=== PATIENT | female | born 1935 | race Caucasian/White ===

== ENCOUNTER 2017-10-27 13:38 | Emergency (ER) | payer MEDICARE, OTHER ==
[2017-10-27 14:49] LABS: ABS Basophils 0.1 10^3/ul (0-0.2); ABS Eosinophils 0.1 10^3/ul (0-0.6); ABS Lymphocytes 0.9 10^3/ul (1.0-4.8); ABS Monocytes 0.9 10^3/ul (0-0.8); ABS Neutrophils 4.3 10^3/ul (1.5-7.7); ABS Nucleated RBC 0 10^3/ul; Eosinophil % 1.6 % (0-6); Hematocrit 41 % (35-47); Hemoglobin 14.1 g/dl (12.0-16.0); Lymphocyte % 14.9 % (25-47); Mean Corpuscular HGB Conc 34 g/dl (31-36); Mean Corpuscular Hemoglobin 33 pg (27-31); Mean Corpuscular Volume 96 fL (80-97); Mean Platelet Volume 7.8 um3 (7.4-10.4); Nucleated Red Blood Cells % 0.1; Platelet Count 173 10^3/ul (150-450); Red Blood Count 4.31 10^6/ul (4.00-5.40); Red Cell Distribution Width 17 % (10.5-15); White Blood Count 6.3 10^3/ul (3.5-10.8)
--- NOTE | 2017-10-27 15:11 | RAD ---
INDICATION: Weakness COMPARISON: Renal bone survey chest x-ray March 30, 2017 TECHNIQUE: An AP portable view obtained at 1500 hours is submitted. FINDINGS: Bones/Soft Tissues: There are no acute bony findings. There is left-sided cardiac pacemaker, unchanged Cardiomediastinal: The cardiomediastinal silhouette is normal. Lungs: There are no infiltrates. Pleura: There are no pleural effusions. Other: None IMPRESSION: CARDIAC PACEMAKER. NO ACTIVE DISEASE.
[2017-10-27 15:54] LABS: Urine Appearance Cloudy; Urine Blood 1+ (Negative); Urine Color Yellow; Urine Ketones Negative (Negative); Urine Protein Negative (Negative); Urine Specific Gravity 1.009 (1.010-1.030); Urine Urobilinogen Negative (Negative)
[2017-10-27] MEDS ORDERED: Ciprofloxacin TAB* 500 MG PO ONE (16:57)
[2017-10-27 17:06] VITALS: BP 147/78
--- NOTE | 2017-10-27 21:17 | ED ---
Susie Glass Prashati, scribed for Alfred Borges MD on 10/27/17 at 1504 . Palpitations / Dysrhythmia - HPI Summary HPI Summary: Pt is an 82 y/o F presents to ED c/o general malaise. She has been not feeling well with generalized weakness since this morning. This morning she seemed more out of sort than usual, and her son's who is a nurse took her heart rate and believed it to be irregular and fast. Pt says she didnt notice any palpitations. She does note that she would have felt dizzy if she stood up, but she didnt stand up. She denies chest pain, dyspnea, and nausea. Yesterday she had a normal diet and drink and felt well. Today she had diarrhea once that she described as loose. No problems urinating. PSHx of a pacemaker insertion in 2010 and it was last checked with [facility] about 1 month ago. 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, Other: - nurse's report Severity Currently: None Character: Fast, Irregular Aggravating: Nothing Alleviating: Nothing - Allergy/Home Medications Allergies/Adverse Reactions: Allergies Allergy/AdvReac Type Severity Reaction Status Date / Time No Known Allergies Allergy Verified 10/27/17 13:43 Home Medications: Home Medications Cyanocobalamin TAB* [Vitamin B12 TAB*] 500 mcg PO DAILY 10/27/17 [History Confirmed 10/27/17] Dexamethasone TAB* [Decadron TAB*] 40 mg PO Q7D 10/27/17 [History Confirmed 10/09] Docusate CAP* [Colace Cap*] 100 mg PO DAILY 10/27/17 [History Confirmed 10/27/17 ] Dronabinol CAP* [Marinol CAP*] 2.5 mg PO BEDTIME 10/27/17 [History Confirmed 10/09] Ibuprofen TAB* [Advil TAB*] 200 mg PO TID PRN 10/27/17 [History Confirmed ] Lenalidomide (NF) [Revlimid (NF)] 25 mg PO Q14D 10/27/17 [History Confirmed 10/09] Rosuvastatin (NF) [Crestor] 20 mg PO DAILY 10/27/17 [History Confirmed 10/27/17] fentaNYL PATCH 25 MCG/HR* [Duragesic PATCH 25 Mcg/Hr*] 25 mcg TRANSDERM Q72H PRN 10/27/17 [History Confirmed 10/27/17] oxyCODONE TAB* [Roxycodone TAB 5 mg*] 5 mg PO Q4H PRN 10/27/17 [History Confirmed 10/27/17] PMH/Surg Hx/FS Hx/Imm Hx Cardiovascular History: Reports: Hx Pacemaker/ICD - 2011 Musculoskeletal History: Reports: Hx Arthritis, Hx Back Problems Sensory History: Reports: Hx Contacts or Glasses - GLASSES Denies: Hx Hearing Aid Opthamlomology History: Reports: Hx Contacts or Glasses - GLASSES - Surgical History Surgery Procedure, Year, and Place: 2008 LUMBAR SURGERY [facility]. 2010 PACEMAKER INSERTION [facility] Hx Anesthesia Reactions: No Infectious Disease History: No Infectious Disease History: Denies: Traveled Outside the [place] in Last 30 Days - Family History Known Family History: Positive: Other - [id number] - Social History Alcohol Use: None Substance Use Type: Reports: None Smoking Status (MU): Never Smoked Tobacco Review of Systems Positive: Other - general malaise, generalized weakness Positive: Palpitations - Son's said fast and irregular - pt denies. Negative: Chest Pain Negative: Shortness Of Breath Positive: Diarrhea. Negative: Nausea Positive: no symptoms reported All Other Systems Reviewed And Are Negative: Yes Physical Exam - Summary Physical Exam Summary: Appearance: The patient is well-nourished in no acute distress and in no acute pain. Skin: The skin is warm and dry and skin color reflects adequate perfusion. HEENT: The head is normocephalic and atraumatic. The pupils are equal and reactive. The conjunctivae are clear and without drainage. Nares are patent and without drainage. Mouth reveals moist mucous membranes and the throat is without erythema and exudate. The external ears are intact. The ear canals are patent and without drainage. The tympanic membranes are intact. Neck: The neck is supple with full range of motion and non-tender. There are no carotid bruits. There is no neck vein distension. Respiratory: Chest is non-tender. Lungs are clear to auscultation and breath sounds are symmetrical and equal. Cardiovascular: Heart is regular rate and rhythm. There is no murmur or rub auscultated. There is no peripheral edema and pulses are symmetrical and equal. Abdomen: The abdomen is soft and non-tender. There are normal bowel sounds heard in all four quadrants and there is no organomegaly palpated. Musculoskeletal: There is no back tenderness noted. Extremities are non-tender with full range of motion. There is good capillary refill. There is no peripheral edema or calf tenderness elicited. Neurological: Patient is alert and oriented to person, place and time. The patient has symmetrical motor strength in all four extremities. Cranial nerves are grossly intact. Deep tendon reflexes are symmetrical and equal in all four extremities. Psychiatric: The patient has an appropriate affect and does not exhibit any anxiety or depression. Triage Information Reviewed: Yes Vital Signs On Initial Exam: Initial Vitals Temp Pulse Resp BP Pulse Ox 98.9 F 81 16 151/108 97 10/27/17 13:40 10/27/17 13:40 10/27/17 13:40 10/27/17 13:40 10/27/17 13:40 Vital Signs Reviewed: Yes Diagnostics - Vital Signs Vital Signs Temp Pulse Resp BP Pulse Ox 10/27/17 13:40 98.9 F 81 16 151/108 97 - Laboratory Lab Results: Lab Results 10/27/17 10/27/17 10/27/17 Range/Units 14:41 14:41 14:41 WBC 6.3 (3.5-10.8) 10^3/ul RBC 4.31 (4.00-5.40) 10^6/ul Hgb 14.1 (12.0-16.0) g/dl Hct 41 (35-47) % MCV 96 (80-97) fL MCH 33 H (27-31) pg MCHC 34 (31-36) g/dl RDW 17 H (10.5-15) % Plt Count 173 (150-450) 10^3/ul MPV 7.8 (7.4-10.4) um3 Neut % (Auto) 68.2 (38-83) % Lymph % (Auto) 14.9 L (25-47) % Dane % (Auto) 14.3 H (0-7) % Eos % (Auto) 1.6 (0-6) % Baso % (Auto) 1.0 (0-2) % Absolute Neuts (auto) 4.3 (1.5-7.7) 10^3/ul Absolute Lymphs (auto) 0.9 L (1.0-4.8) 10^3/ul Absolute Monos (auto) 0.9 H (0-0.8) 10^3/ul Absolute Eos (auto) 0.1 (0-0.6) 10^3/ul Absolute Basos (auto) 0.1 (0-0.2) 10^3/ul Absolute Nucleated RBC 0 10^3/ul Nucleated RBC % 0.1 Sodium 141 (135-145) mmol/L Potassium 3.4 L (3.5-5.0) mmol/L Chloride 106 (101-111) mmol/L Carbon Dioxide 27 (22-32) mmol/L Anion Gap 8 (2-11) mmol/L BUN 12 (6-24) mg/dL Creatinine 0.83 (0.51-0.95) mg/dL Est GFR ( Amer) 79.8 (>60) Est GFR (Non-Af Amer) 66.0 (>60) BUN/Creatinine Ratio 14.5 (8-20) Glucose 78 (70-100) mg/dL Lactic Acid 0.8 (0.5-2.0) mmol/L Calcium 8.7 (8.6-10.3) mg/dL Magnesium 2.0 (1.9-2.7) mg/dL Total Bilirubin 0.70 (0.2-1.0) mg/dL AST 11 L (13-39) U/L ALT 11 (7-52) U/L Alkaline Phosphatase 76 (34-104) U/L Troponin I 0.01 (<0.04) ng/mL Total Protein 6.0 L (6.4-8.9) g/dL Albumin 3.6 (3.2-5.2) g/dL Globulin 2.4 (2-4) g/dL Albumin/Globulin Ratio 1.5 (1-3) TSH 0.53 (0.34-5.60) mcIU/mL Urine Color Urine Appearance Urine pH (5-9) Ur Specific [place] (1.010-1.030) Urine Protein (Negative) Urine Ketones (Negative) Urine Blood (Negative) Urine Nitrate (Negative) Urine Bilirubin (Negative) Urine Urobilinogen (Negative) Ur Leukocyte Esterase (Negative) Urine WBC (Auto) (Absent) Urine RBC (Auto) (Absent) Ur Squamous Epith Cells (Absent) Urine Bacteria (Absent) Urine Glucose (Negative) 10/27/17 Range/Units 15:28 WBC (3.5-10.8) 10^3/ul RBC (4.00-5.40) 10^6/ul Hgb (12.0-16.0) g/dl Hct (35-47) % MCV (80-97) fL MCH (27-31) pg MCHC (31-36) g/dl RDW (10.5-15) % Plt Count (150-450) 10^3/ul MPV (7.4-10.4) um3 Neut % (Auto) (38-83) % Lymph % (Auto) (25-47) % Dane % (Auto) (0-7) % Eos % (Auto) (0-6) % Baso % (Auto) (0-2) % Absolute Neuts (auto) (1.5-7.7) 10^3/ul Absolute Lymphs (auto) (1.0-4.8) 10^3/ul Absolute Monos (auto) (0-0.8) 10^3/ul Absolute Eos (auto) (0-0.6) 10^3/ul Absolute Basos (auto) (0-0.2) 10^3/ul Absolute Nucleated RBC 10^3/ul Nucleated RBC % Sodium (135-145) mmol/L Potassium (3.5-5.0) mmol/L Chloride (101-111) mmol/L Carbon Dioxide (22-32) mmol/L Anion Gap (2-11) mmol/L BUN (6-24) mg/dL Creatinine (0.51-0.95) mg/dL Est GFR ( Amer) (>60) Est GFR (Non-Af Amer) (>60) BUN/Creatinine Ratio (8-20) Glucose (70-100) mg/dL Lactic Acid (0.5-2.0) mmol/L Calcium (8.6-10.3) mg/dL Magnesium (1.9-2.7) mg/dL Total Bilirubin (0.2-1.0) mg/dL AST (13-39) U/L ALT (7-52) U/L Alkaline Phosphatase (34-104) U/L Troponin I (<0.04) ng/mL Total Protein (6.4-8.9) g/dL Albumin (3.2-5.2) g/dL Globulin (2-4) g/dL Albumin/Globulin Ratio (1-3) TSH (0.34-5.60) mcIU/mL Urine Color Yellow Urine Appearance Cloudy Urine pH 6.0 (5-9) Ur Specific [place] 1.009 L (1.010-1.030) Urine Protein Negative (Negative) Urine Ketones Negative (Negative) Urine Blood 1+ A (Negative) Urine Nitrate Negative (Negative) Urine Bilirubin Negative (Negative) Urine Urobilinogen Negative (Negative) Ur Leukocyte Esterase 3+ A (Negative) Urine WBC (Auto) 1+(6-10/hpf) A (Absent) Urine RBC (Auto) 2+(6-10/hpf) A (Absent) Ur Squamous Epith Cells Present A (Absent) Urine Bacteria 1+ A (Absent) Urine Glucose Negative (Negative) Result Diagrams: 10/27/17 14:41 10/27/17 14:41 Lab Statement: Any lab studies that have been ordered have been reviewed, and results considered in the medical decision making process. - Radiology CXR Radiology Interpretation Completed By: Radiologist - IMPRESSION: CARDIAC PACEMAKER. NO ACTIVE DISEASE. ED physician reviewed this report. - EKG 14:13 Cardiac Rate: NL - 76 bpm EKG Interpretation: Paced rhythm Re-Evaluation - Re-Evaluation First Eval Re-Evaluation Time: 17:00 Comment: discussed results and discharge, patient feels well Course/Dx - Course Course Of Treatment: Ms. Iniguez wasn't feeling well this morning and a friend who is a RN took her pulse and told her it was fast and irregular. She was kept on a monitor here in the emergency department with a paced rhythm throughout and no ectopy. Workup revealed a UTI. She had no complaints while she was here and her vitals remained stable. There was a prolonged wait time to get any kind of interrogation of her pacer and she was unwilling to stay for that. 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 - Diagnoses Provider Diagnoses: UTI (urinary tract infection) Discharge - Sign-Out/Discharge Documenting (check all that apply): Discharge/Admit/Transfer - discharge - Discharge Plan Condition: Stable Disposition: HOME Prescriptions: Ciprofloxacin TAB* [Cipro Tab*] 500 mg PO BID #13 tab Patient Education Materials: Urinary Tract Infection in Women (ED) Referrals: Shawn Smith DO [Primary Care Provider] - 3 Days (Follow up with your primary care physician next week. ) Additional Instructions: RETURN TO ED IF ANY NEW OR WORSENING SYMPTOMS - Billing Disposition and Condition Condition: STABLE Disposition: Home The documentation as recorded by the Susie rod Prashati accurately reflects the service I personally performed and the decisions made by me, Alfred Borges MD.
== END 2017-10-27 17:03 | disposition home or self-care (01) ==
LOC: ED 13:38
DX: N39.0 Urinary tract infection, site not specified (principal); Z95.810 Presence of automatic (implantable) cardiac defibrillator
CPT/HCPCS: 36415; 71045; 80053; 81003; 81015; 83605; 83735; 84443; 84484; 85025; 87077; 87086; 93005; 99283; A9270-GY